=== PATIENT | female | born 1985 | race Caucasian/White ===

== ENCOUNTER 2016-09-06 19:24 | Emergency (ER) | payer OTHER ==
[2016-09-06 19:45] VITALS: BP 128/82
--- NOTE | 2016-09-06 19:54 | UC ---
Throat Pain/Nasal Abdi HPI - HPI Summary HPI Summary: complaint os sore throat that started approx 1 week ago started to lose her voice 2 days ago slight nasal congestion denies fever and chills denies cough , headache,ear pain using [place] cough drops 14 weeks [facility] M[employer]ER gave her zofran approx 13 weeks for N/V but not effective vomited 1x today- able to drink water denies diarrhea - History of Current Complaint Chief Complaint: UCRespiratory Stated Complaint: SORE THROAT, VOMITING, AND LOSS OF VOICE Time Seen by Provider: 09/06/16 19:46 Hx Obtained From: Patient Hx Last Menstrual Period: 02/17/15 - Allergies/Home Medications Allergies/Adverse Reactions: Allergies Allergy/AdvReac Type Severity Reaction Status Date / Time Penicillins Allergy throat Verified 09/06/16 19:36 swelling Home Medications: Home Medications Vitamin [Calna] 1 tab DAILY 09/06/16 [History Confirmed 09/06/16] PMH/Surg Hx/FS Hx/Imm Hx Previously Healthy: Yes - Surgical History Surgical History: Yes Surgery Procedure, Year, and Place: 2 csection; APPENDECTOMY - Family History Known Family History: Positive: None Negative: Cardiac Disease, Hypertension, Diabetes - Social History Occupation: Employed Part-time Lives: With Family Alcohol Use: None Substance Use Type: None Smoking Status (MU): Current Every Day Smoker Type: Cigarettes Amount Used/How Often: 1/2ppd Length of Time of Smoking/Using Tobacco: 17 years Have You Smoked in the Last Year: Yes Household Exposure Type: Cigarettes Cessation Counseling: Patient Advised to Stop - Immunization History Most Recent Influenza Vaccination: None Review of Systems Constitutional: Negative Skin: Negative Eyes: Negative ENT: Sore Throat Respiratory: Cough Cardiovascular: Negative Gastrointestinal: Vomiting Genitourinary: Negative Motor: Negative Neurovascular: Negative Musculoskeletal: Negative Neurological: Negative Psychological: Negative All Other Systems Reviewed And Are Negative: Yes Physical Exam Triage Information Reviewed: Yes Appearance: No Pain Distress, Well-Nourished, Obese Vital Signs: Initial Vital Signs Temp 98.3 F 09/06/16 19:38 Pulse 86 09/06/16 19:38 Resp 18 09/06/16 19:38 BP 128/82 09/06/16 19:38 Pulse Ox 99 09/06/16 19:38 Vital Signs Reviewed: Yes Eyes: Positive: Conjunctiva Clear ENT: Positive: Pharyngeal erythema, Nasal congestion, Nasal drainage Neck: Positive: No Lymphadenopathy Respiratory: Positive: Lungs clear, Normal breath sounds, No respiratory distress, No accessory muscle use Cardiovascular: Positive: RRR, No Murmur, Pulses Normal Abdomen Description: Positive: Nontender, No Organomegaly, Soft Bowel Sounds: Positive: Present Musculoskeletal: Positive: No Edema Neurological: Positive: Alert Psychological Exam: Normal Skin Exam: Normal Throat Pain/Nasal Course/Dx - Differential Dx/Diagnosis Differential Diagnosis/HQI/PQRI: Laryngitis, Pharyngitis, Tonsillitis Provider Diagnoses: laryngitis, N/V Discharge - Discharge Plan Condition: Stable Disposition: HOME Prescriptions: Acetaminophen ADULT LIQ* [Tylenol ADULT LIQ*] 650 mg PO Q6H PRN #1 bottle PRN Reason: Pain Patient Education Materials: Laryngitis (ED) Additional Instructions: You have a viral infection increase your fluids and rest take acetaminophen as needed for pain please call your OB provider tomorrow to discuss your nausea/vomiting and zofran use please review your discharge instructions -return to urgent care or the emergency room for further evaluation.
[2016-09-06] MEDS ORDERED: Acetaminophen ADULT LIQ* 650 MG/20.3 ML UDC PO ONE (20:19)
== END 2016-09-06 20:25 | disposition home or self-care (01) ==
LOC: UCEAST 19:24
DX: J04.0 Acute laryngitis (principal); R11.2 Nausea with vomiting, unspecified; Z88.0 Allergy status to penicillin; F17.210 Nicotine dependence, cigarettes, uncomplicated
CPT/HCPCS: 99212; A9270-GY; G0463

== ENCOUNTER 2016-10-28 15:06 | Emergency (ER) | payer OTHER ==
[2016-10-28 15:20] VITALS: BP 129/64
[2016-10-28] MEDS ORDERED: Acetaminophen ADULT LIQ* 650 MG/20.3 ML UDC PO ONE (15:42)
--- NOTE | 2016-10-28 16:10 | UC ---
Lower Extremity/Ankle HPI - HPI Summary HPI Summary: Twisted R ankle on stairs this morning. Had surgery in R ankle years ago for clots and vascular problems, no hx of ortho surgery. Lots of sprains in L ankle in the past. - History of Current Complaint Chief Complaint: UCLowerExtremity Stated Complaint: ANKLE INJURY,(22 WEEKS ) Time Seen by Provider: 10/28/16 15:58 Hx Obtained From: Patient Hx Last Menstrual Period: due in february 22 weeks ?: Yes Onset/Duration: Sudden Onset Severity Initially: Moderate Severity Currently: Moderate Aggravating Factor(s): Standing, Ambulation Alleviating Factor(s): Rest Able to Bear Weight: Yes - Allergies/Home Medications Allergies/Adverse Reactions: Allergies Allergy/AdvReac Type Severity Reaction Status Date / Time Penicillins Allergy throat Verified 10/28/16 15:20 swelling PMH/Surg Hx/FS Hx/Imm Hx - Additional Past Medical History Additional PMH: Hx obesity - Surgical History Surgical History: Yes Surgery Procedure, Year, and Place: 2 csection; APPENDECTOMY - Family History Known Family History: Positive: None Negative: Cardiac Disease, Hypertension, Diabetes - Social History Alcohol Use: None Substance Use Type: None Smoking Status (MU): Current Every Day Smoker Type: Cigarettes Amount Used/How Often: 1/2ppd Length of Time of Smoking/Using Tobacco: 17 years Have You Smoked in the Last Year: Yes Household Exposure Type: Cigarettes - Immunization History Most Recent Influenza Vaccination: None Review of Systems Constitutional: Negative Skin: Negative Eyes: Negative ENT: Negative Respiratory: Negative Cardiovascular: Negative Gastrointestinal: Negative Genitourinary: Negative Motor: Negative Neurovascular: Negative Musculoskeletal: Arthralgia, Decreased ROM Neurological: Negative Psychological: Negative All Other Systems Reviewed And Are Negative: Yes Physical Exam Triage Information Reviewed: Yes Appearance: Pain Distress - mild, Obese Vital Signs: Initial Vital Signs Temp 98.0 F 10/28/16 15:15 Pulse 97 10/28/16 15:15 Resp 18 10/28/16 15:15 BP 129/64 10/28/16 15:15 Pulse Ox 98 10/28/16 15:15 Vital Signs Reviewed: Yes Eye Exam: Normal Eyes: Positive: Conjunctiva Clear ENT Exam: Normal ENT: Positive: Normal ENT inspection, Hearing grossly normal, Pharynx normal, TMs normal Dental Exam: Other - edentulous Neck exam: Normal Respiratory Exam: Normal Respiratory: Positive: Chest non-tender, Lungs clear, Normal breath sounds, No respiratory distress Cardiovascular Exam: Normal Cardiovascular: Positive: RRR, No Murmur Musculoskeletal: Positive: ROM Limited @ - R ankle, Other: - diffuse pain throughout joint, no bony tenderness Neurological Exam: Normal Neurological: Positive: Alert Psychological Exam: Normal Skin Exam: Normal Lower Extremity Course/Dx - Differential Dx/Diagnosis Provider Diagnoses: R ankle sprain. elevated blood pressure due to pain Discharge - Discharge Plan Condition: Stable Disposition: HOME Patient Education Materials: Ankle Sprain (ED) Referrals: Danielle Rivera MD [Primary Care Provider] - 1 Week Additional Instructions: If you are not comfortable walking with the gel splint after a week, please see Dr. Rivera for a follow-up appointment to discuss physical therapy. However, if you see rapid and continued improvement, you can simply wear the brace for 1-3 weeks until your ankle feels better.
--- NOTE | 2016-10-28 16:39 | RAD ---
HISTORY: Right ankle injury COMPARISONS: None VIEWS: 3, Frontal, lateral, and oblique views of the right ankle FINDINGS: BONE DENSITY: Normal. BONES: There is no displaced fracture. JOINTS: There is no arthropathy. ALIGNMENT: There is no dislocation. SOFT TISSUES: There is circumferential soft tissue swelling OTHER FINDINGS: None. IMPRESSION: SOFT TISSUE SWELLING. NO ACUTE OSSEOUS INJURY. IF SYMPTOMS PERSIST, RECOMMEND REPEAT IMAGING.
== END 2016-10-28 17:00 | disposition home or self-care (01) ==
LOC: UCEAST 15:06
DX: O26.892 Other specified pregnancy related conditions, second trimester (principal); S93.401A Sprain of unspecified ligament of right ankle, initial encounter; Z3A.22 22 weeks gestation of pregnancy; X50.1XXA Overexertion from prolonged static or awkward postures, initial encounter; Y93.89 Activity, other specified; Y92.9 Unspecified place or not applicable; R03.0 Elevated blood-pressure reading, without diagnosis of hypertension; Z88.0 Allergy status to penicillin; F17.210 Nicotine dependence, cigarettes, uncomplicated
CPT/HCPCS: 99213; A9270-GY; G0463

== ENCOUNTER 2018-05-05 10:05 | Emergency (ER) | payer OTHER ==
[2018-05-05 10:24] VITALS: BP 129/86
[2018-05-05] MEDS ORDERED: Ondansetron ODT TAB* 4 MG PO ONE (11:10)
--- NOTE | 2018-05-05 11:10 | UC ---
Abdominal Pain Female HPI - HPI Summary HPI Summary: 32 yo F, hx of appendectomy, c/o acute onset severe abdominal pain associated w multiple episodes of bilious vomiting this AM. Pain feels like a twisting across her lower abdomen. No fever. Feels similar to her tubal in past. LMP Feb 25. Not on control. Hx of irregular periods that occur infrequently - History of Current Complaint Chief Complaint: UCAbdominalPain Stated Complaint: ABD PAIN VOMITING Time Seen by Provider: 05/05/18 10:33 Hx Last Menstrual Period: feb Pain Intensity: 5 Allergies/Adverse Reactions: Allergies Allergy/AdvReac Type Severity Reaction Status Date / Time Penicillins Allergy Hives Verified 05/05/18 10:25 PMH/Surg Hx/FS Hx/Imm Hx - Surgical History Surgical History: Yes Surgery Procedure, Year, and Place: 2 csection; APPENDECTOMY - Family History Known Family History: Positive: None Negative: Cardiac Disease, Hypertension, Diabetes - Social History Alcohol Use: None Substance Use Type: None Smoking Status (MU): Current Every Day Smoker Type: Cigarettes Amount Used/How Often: 1/2ppd Length of Time of Smoking/Using Tobacco: 17 years Have You Smoked in the Last Year: Yes Household Exposure Type: Cigarettes - Immunization History Most Recent Influenza Vaccination: None Review of Systems Constitutional: Negative Gastrointestinal: Abdominal Pain, Vomiting Genitourinary: Negative All Other Systems Reviewed And Are Negative: Yes Physical Exam Triage Information Reviewed: Yes Appearance: Pain Distress, Obese, Other: - tearful Vital Signs: Initial Vital Signs Temp 97.1 F 05/05/18 10:20 Pulse 63 05/05/18 10:20 Resp 17 05/05/18 10:20 BP 129/86 05/05/18 10:20 Pulse Ox 98 05/05/18 10:20 Vital Signs Reviewed: Yes Eyes: Positive: Conjunctiva Clear Abdomen Description: Positive: Soft, Guarding, Other: - TTP across upper abdomen Skin Exam: Normal Abd Pain Female Course/Dx - Course Course Of Treatment: given zofran, instructed to go to ER for eval - Differential Dx/Diagnosis Differential Diagnosis: Other - cholecystitis, gastritis, pancreatitis Provider Diagnoses: abdominal pain, vomiting Discharge - Sign-Out/Discharge Documenting (check all that apply): Patient Departure All imaging exams completed and their final reports reviewed: No Studies - Discharge Plan Condition: Stable Disposition: HOME-RECOMMEND TO ED Patient Education Materials: Acute Abdominal Pain (ED) Referrals: Danielle Rivera MD [Primary Care Provider] - - Billing Disposition and Condition Condition: STABLE Disposition: Home-Recommend to ED
== END 2018-05-05 11:30 | disposition home health service (06) ==
LOC: UCEAST 10:05
DX: R10.30 Lower abdominal pain, unspecified (principal); R10.10 Upper abdominal pain, unspecified; R11.14 Bilious vomiting; Z90.89 Acquired absence of other organs; Z88.0 Allergy status to penicillin; F17.210 Nicotine dependence, cigarettes, uncomplicated
CPT/HCPCS: 84702; 99212; A9270-GY; G0463

== ENCOUNTER → 2018-05-05 12:33 | Emergency (ER) | payer OTHER ==
[~2018-05-05 12:33] MED LIST: Ketorolac INJ* 30 MG/ML 1 ML VIAL IV PUSH ONE; NS 0.9% 1000 ML* 1,000 ML IV ONE; Ondansetron INJ* 2 MG/ML VIAL IV ONE; Ondansetron INJ* 2 MG/ML VIAL ONE
--- NOTE | 2018-05-05 13:28 | ED ---
Abdominal Pain/Female - HPI Summary HPI Summary: A 32 y/o female presents to the ED with abdominal pain since 02:00 05/05/2018. She was found hunched over in pain according to a friend. She rates her pain as 10/10. She also c/o vomiting, sore throat and diarrhea. She denies fever, chills , ALVARENGA, ear pain, blurred vision, double vision, neck pain, CP, SOB, back pain, dysuria, hematuria, blood in the stool, constipation, edema, bruising, and rashesShe has a SHx of an appendectomy and x3 C-sections. - History of Current Complaint Chief Complaint: EDAbdPain Stated Complaint: ABD PAIN Hx Obtained From: Patient, Family/Certified Drug Counselor Hx Last Menstrual Period: feb Onset/Duration: Sudden Onset Timing: Constant Severity Initially: Severe Severity Currently: Severe Pain Intensity: 10 Location: Diffuse Associated Signs and Symptoms: Positive: Vomiting, Diarrhea Allergies/Adverse Reactions: Allergies Allergy/AdvReac Type Severity Reaction Status Date / Time Penicillins Allergy Hives Verified 05/05/18 10:25 PMH/Surg Hx/FS Hx/Imm Hx Endocrine/Hematology History: Reports: Hx Diabetes Sensory History: Denies: Hx Deafness - Surgical History Surgery Procedure, Year, and Place: 2 csection; APPENDECTOMY Infectious Disease History: No Infectious Disease History: Denies: History Other Infectious Disease, Traveled Outside the [place] in Last 30 Days - Family History Known Family History: Negative: Cardiac Disease, Hypertension, Diabetes - Social History Alcohol Use: Rare Substance Use Type: Reports: Marijuana Smoking Status (MU): Light Every Day Tobacco Smoker Type: Cigarettes Amount Used/How Often: 1/2ppd Length of Time of Smoking/Using Tobacco: 17 years Have You Smoked in the Last Year: Yes Review of Systems Negative: Fever, Chills Eyes: Negative - double vision Negative: Blurred Vision ENT: Negative - throat pain Positive: Sore Throat. Negative: Ear Ache Negative: Chest Pain Negative: Shortness Of Breath Gastrointestinal: Negative - constipation, blood in stool Positive: Abdominal Pain, Vomiting, Diarrhea Negative: dysuria, hematuria Negative: Myalgia - back pain, Edema Negative: Rash, Bruising Negative: Headache All Other Systems Reviewed And Are Negative: No Physical Exam - Summary Physical Exam Summary: Appearance: Alert, conversive, nontoxic appearing Skin: Warm, dry, no mottling, no rashes, no contusions HEENT: EOMI, PERRL, dry mucous membranes Neck: No masses on the neck, supple Respiratory: Clear to auscultation, breath sounds present, no rales, no rhonchi , no wheezes Cardiovascular: RRR, pulses are symmetrical in both lower and upper extremities Abdomen: mid to lower abd discomfort Bowel Sounds: Present Musculoskeletal: No CVA tenderness, no obvious deformity, moving all extremities in a grossly normal manner Neurological: A&Ox3, CN II-XII Intact, moving all extremities symmetrically Psychiatric: Normal affect and mood Triage Information Reviewed: Yes Vital Signs On Initial Exam: Initial Vitals Temp Pulse Resp BP Pulse Ox 97.7 F 83 16 119/90 98 05/05/18 12:33 05/05/18 12:33 05/05/18 12:33 05/05/18 12:33 05/05/18 12:33 Vital Signs Reviewed: Yes Diagnostics - Vital Signs Vital Signs Temp Pulse Resp BP Pulse Ox 05/05/18 12:52 70 115/78 97 05/05/18 12:51 75 98 05/05/18 12:33 97.7 F 83 16 119/90 98 - Laboratory Result Diagrams: 05/05/18 13:32 05/05/18 13:32 Lab Statement: Any lab studies that have been ordered have been reviewed, and results considered in the medical decision making process. - Radiology CXR Radiology Interpretation Completed By: Radiologist - No active cardiopulmonary disease. The ED provider has reviewed this report. - CT abdomen/ pelvis CT Interpretation Completed By: Radiologist - #. Air-fluid level at the incompletely distended rectum corresponding with history of diarrhea. No inflammatory change of the bowel wall evident. #. Hepatosteatosis. This report has been reviewed by the ED physician. Re-Evaluation - Re-Evaluation First Eval Re-Evaluation Time: 17:55 Change: Unchanged Comment: Spoke with patient about dx being diarrhea and discharge plan. Abdominal Pain Fem Course/Dx - Course Course Of Treatment: A 32 y/o female presents to the ED with abdominal pain since 02:00 05/05/2018. She was found hunched over in pain according to a friend. Her CXR was negative and her abdomen/pelvis CT was consistent with diarrhea. She will be discharged with a diagnosis of diarrhea and is agreeable to this plan. - Diagnoses Provider Diagnoses: Diarrhea Discharge - Sign-Out/Discharge Documenting (check all that apply): Patient Departure - DC - Discharge Plan Condition: Stable Disposition: HOME Prescriptions: Ondansetron TAB* [Zofran 4 MG Tab*] 4 mg PO Q6H PRN #20 tab MDD 4 PRN Reason: Nausea Patient Education Materials: Acute Diarrhea (ED), Acute Abdominal Pain (ED) Referrals: [facility] [Provider Group] No Primary Care Phys,NOPCP [Primary Care Provider] - Additional Instructions: take zofran for nausea. return if worse or any new symptoms it is important to follow up with your primary care physician. - Billing Disposition and Condition Condition: STABLE Disposition: Home - Attestation Statements Document Initiated by Yoel: Yes Documenting Scribe: Sonu Mckeon Provider For Whom Yoel is Documenting (Include Credential): Josie Odonnell MD Scribe Attestation: Sonu Barry scribed for Josie Odonnell MD on 05/05/18 at 2137. Scribe Documentation Reviewed: Yes Provider Attestation: The documentation as recorded by the Sonu jung accurately reflects the service I personally performed and the decisions made by me, Josie Odonnell MD
[2018-05-05 13:45] LABS: ABS Basophils 0.1 10^3/ul (0-0.2); ABS Eosinophils 0.1 10^3/ul (0-0.6); ABS Lymphocytes 2.8 10^3/ul (1.0-4.8); ABS Monocytes 0.8 10^3/ul (0-0.8); ABS Neutrophils 12.8 10^3/ul (1.5-7.7); ABS Nucleated RBC 0 10^3/ul; Eosinophil % 0.7 % (0-6); Hematocrit 45 % (35-47); Hemoglobin 15.2 g/dl (12.0-16.0); Lymphocyte % 16.8 % (25-47); Mean Corpuscular HGB Conc 34 g/dl (31-36); Mean Corpuscular Hemoglobin 30 pg (27-31); Mean Corpuscular Volume 87 fL (80-97); Mean Platelet Volume 8.2 fL (7.4-10.4); Nucleated Red Blood Cells % 0; Platelet Count 299 10^3/ul (150-450); Red Cell Distribution Width 14 % (10.5-15); White Blood Count 16.6 10^3/ul (3.5-10.8)
[2018-05-05 14:14] LABS: EGFR Non-African American 121.3 (>60)
--- NOTE | 2018-05-05 15:18 | RAD ---
HISTORY: fever COMPARISONS: None VIEWS: 1: frontal AP view of the chest at 3:08 PM FINDINGS: LINES AND TUBES: None. CARDIOMEDIASTINAL SILHOUETTE: The cardiomediastinal silhouette is normal for portable technique. PLEURA: The costophrenic angles are sharp. No pleural abnormalities are noted. LUNG PARENCHYMA: The lungs are clear. ABDOMEN: The upper abdomen is clear. There is no subphrenic gas. BONES AND SOFT TISSUES: No bone or soft tissue abnormalities are noted. IMPRESSION: NO ACTIVE CARDIOPULMONARY DISEASE.
--- NOTE | 2018-05-05 17:37 | RAD ---
INDICATION: Lower abdominal pain. Abdominal distention. Vomiting. Diarrhea. Post appendectomy. COMPARISON: No relevant prior exams available on the [facility] PACS for comparison. TECHNIQUE: Multidetector CT images were obtained from the lung bases to the ischial tuberosities. No oral contrast administered. Assessment of the visceral limited without IV contrast. Multiplanar reformation. REPORT: VISUALIZED INFERIOR THORAX: Unremarkable visualized inferior thorax. LIVER / GALLBLADDER / PANCREAS / SPLEEN: Decreased density of the liver relative to the spleen consistent with fatty infiltration. No focal liver lesions or abnormality of the gallbladder, pancreas, or spleen evident. ALIMENTARY TRACT: No CT abnormality of the upper GI or small bowel. The appendix is not visualized corresponding with surgical history. The colon is largely decompressed. Air-fluid level at the rectum. No colonic wall thickening or perienteric inflammatory change evident. Negative for ascites, free air, hernias. MESENTERIC: Unremarkable. ADRENAL / GENITOURINARY: Normal adrenal glands. Unremarkable unenhanced kidneys. Unremarkable nondilated ureters. Largely decompressed urinary bladder without gross abnormality. Unremarkable uterus and adnexal regions. RETROPERITONEAL: Normal size limits bilateral inguinal lymph nodes. Negative for lymphadenopathy. VASCULAR: Normal diameter abdominal aorta and iliac arteries. Physiologic distention of the IVC. BONES: Indolent sclerosis at the iliac margins of the sacroiliac joints consistent with sacroiliitis condensans ilii without concern. No suspicious osseous lesions evident. SOFT TISSUE: Unremarkable. IMPRESSION: #. Air-fluid level at the incompletely distended rectum corresponding with history of diarrhea. No inflammatory change of the bowel wall evident. #. Hepatosteatosis.
[2018-05-05 18:35] VITALS: BP 137/77
== END | disposition home or self-care (01) ==
LOC: ED 12:33
DX: R19.7 Diarrhea, unspecified (principal); R11.10 Vomiting, unspecified; J02.9 Acute pharyngitis, unspecified; Z88.0 Allergy status to penicillin; F17.210 Nicotine dependence, cigarettes, uncomplicated
CPT/HCPCS: 36415; 71045; 74176; 80053; 83690; 83735; 84443; 84702; 85025; 96361; 96374; 96375; 99283; J1885; J2405

== ENCOUNTER 2019-03-27 14:40 | Inpatient (IN) | payer OTHER ==
--- NOTE | 2019-03-27 15:54 | PN ---
L&D Outpatient: Visit - Reproductive Information Estimated Due Date: 04/10/19 Gestational Age: 38 Weeks and 0 Days : 4 Para: 3 - Reason for Visit Visit Reason: Patient presents with complaints of abdominal cramping, vaginal mucus, and an episode of nausea/vomiting yesterday night. Denies fever, chills, GI s/sx other than nausea/vomiting, no urinary s/sx, no fever/chills, body aches and pain. - Antepartal Records Antepartal Record: Reviewed, Complicated by: - BMI 43, Tobacco use, Gestational diabetes A1, Prior times 3 Review of Systems Constitutional: Comfortable CV Complaint: No Respiratory: Shortness of Breath: No Gastrointestinal: Normal Bowel Movement, Nausea, Vomiting Genitourinary: No Dysuria, No Bleeding, No Leaking Fluid Musculoskeletal: No Complaint, No Epigastric Pain Neurological: No Headache Movement: Normal L&D Outpatient: Exam Vitals - Most Recent: Temp 97.7 P 68 RR 18 BP 126/84 RR 18 P0x 94 RA FS blood glucose 76 Lab Values - Entire Visit: Laboratory Tests 03/27/19 14:46 POC Glucose (mg/dL) 79 - Cervical Exam Cervical Exam: Closed/Thick/Posterior/-2 Cephalic - Abdominal Exam Abdomen Exam: Non-Tender, Fundal Height Consistent with Dates - Membranes Membrane Status: Intact EFM Findings - External Monitor Findings Baseline Heart Rate: 130 External Monitor Findings: Accelerations Present, Baseline Rate Changing - Spontaneous 6 minute long deceleration, responsive to resuscitation. Contractions: Irregular, Mild L&D Outpatient: Asses/Plan Assessment: at 38 weeks with multiple risks factors, BMI 43, Gestational diabetes , cigarette smoker and prior section who desires sterilization. - Discharge Diagnosis Discharge Diagnosis: Other - Non-reassuring monitoring. Plan: Admit as Inpatient
[2019-03-27] MEDS ORDERED: Lactated Ringers 1000 ML Bag* 1,000 ML IV SCH ×2 (16:00→19:00)
[2019-03-27] MEDS ORDERED: ceFOXitin 2 GM IVPREMIX* 2 GM/50 ML BAG ONE (16:14)
[2019-03-27] MEDS ORDERED: Sodium Citrate/Citric Acid* 15 ML UDC ONE (16:15)
[2019-03-27 16:19] LABS: ABS Basophils 0.1 10^3/ul (0-0.2); ABS Lymphocytes 2.9 10^3/ul (1.0-4.8); ABS Monocytes 0.8 10^3/ul (0-0.8); ABS Neutrophils 8.9 10^3/ul (1.5-7.7); Eosinophil % 0.4 %; Hematocrit 41 % (35-47); Lymphocyte % 22.9 %; Mean Corpuscular HGB Conc 34 g/dL (31-36); Mean Corpuscular Hemoglobin 30 pg (27-31); Mean Corpuscular Volume 87 fL (80-97); Platelet Count 181 10^3/uL (150-450); Red Blood Count 4.69 10^6 /uL (3.70-4.87); Red Cell Distribution Width 14 % (10-15); White Blood Count 12.8 10^3/uL (3.5-10.8)
[2019-03-27 16:21] LABS: Urine Appearance Cloudy; Urine Bilirubin Negative (Negative); Urine Blood Negative (Negative); Urine Color Yellow; Urine Glucose Negative (Negative); Urine Ketones Negative (Negative); Urine Nitrite Negative (Negative); Urine Protein Negative (Negative); Urine Specific Gravity 1.017 (1.010-1.030); Urine Urobilinogen Negative (Negative)
[2019-03-27] MEDS ORDERED: Clindamycin 900 MG IVPREMIX(* 900 MG/50 ML SDV IV ONE ×2 (16:21→16:25)
[2019-03-27] MEDS ORDERED: Morphine PF AMP (0.5MG/ML)* 5 MG/10 ML AMP ONE (16:27)
[2019-03-27] MEDS ORDERED: GENTAMICIN ADULT IVPB ONE (16:30)
[2019-03-27] MEDS ORDERED: NS 0.9% IVPB ONE (16:30)
[2019-03-27 16:35] LABS: BUN/Creatinine Ratio 15.4 (8-20); Calcium 8.2 mg/dL (8.6-10.3); EGFR African American 165.4 (>60); EGFR Non-African American 136.7 (>60); Potassium 4.1 mmol/L (3.5-5.0); Total Bilirubin 0.3 mg/dL (0.2-1.0)
[2019-03-27] MEDS ORDERED: Ondansetron INJ* 2 MG/ML VIAL ONE (16:57)
[2019-03-27] MEDS ORDERED: OXYTOCIN* 10 UNITS/ML 1 ML VIAL ONE (16:57)
[2019-03-27] MEDS ORDERED: Phenylephrine 40 MCG/ML SYRINGE ONE (16:57)
[2019-03-27] MEDS ORDERED: Ketorolac INJ* 30 MG/ML 1 ML VIAL ONE (16:57)
[2019-03-27] MEDS ORDERED: EPHEDrine (Pressors)* 50 MG/ML VIAL ONE (16:57)
[2019-03-27] MEDS ORDERED: HYDROmorphone INJ1* 1 MG/ML SYRINGE IV PRN (17:31)
[2019-03-27] MEDS ORDERED: Naloxone* 0.4 MG/ML 1 ML VIAL IV PRN ×2 (17:31→17:33)
[2019-03-27] MEDS ORDERED: DiMENhydriNATE IV* 50 MG/ML VIAL IV PUSH PRN (17:31)
[2019-03-27] MEDS ORDERED: Acetaminophen IV 1GM/100ML * 1,000 MG/100 ML VIAL IVPB ONE (17:31)
[2019-03-27] MEDS ORDERED: Nalbuphine* 10 MG/ML 1 ML VIAL IV PRN (17:33)
[2019-03-27] MEDS ORDERED: Ondansetron INJ* 2 MG/ML VIAL IV PRN (17:33)
--- NOTE | 2019-03-27 17:58 | HP ---
General Information - Reason for Visit Patient arrived to with contractions and recurrent episodes of prolonged decelerations. - General Information Maternal Age: 33 Grav: 4 Para: 3 SAB: 0 IEA: 0 Estimated Due Date: 04/10/19 Determined By: Early Ultrasound Gestational Age in Weeks/Days: 38 Maternal Blood Type and Rh: O Positive - Results this Serology/RPR Result: Non-Reactive Rubella Result: Immune HBsAg Result: Negative HIV Result: Negative GBS Culture Result: Negative Past Medical History Delivery History: Hx C/Section, See Records Pertinent Past Medical History: See Records Past Medical History Comment: Morbid Obesity 1 Pk/day cigarette smoker Pertinent Past Surgical History: See Records Pertinent Family History: See Records - Antepartal Records Antepartal Records: Reviewed, Complicated by: - BMI 43, cigarette smoker, gestational diabetes, prior X 3 Review of Systems Constitutional: Uncomfortable CV Complaint: No Respiratory: Shortness of Breath: No Gastrointestinal: Normal Bowel Movement, Nausea Genitourinary: No Dysuria, No Bleeding, No Leaking Fluid Musculoskeletal: Contractions Neurological: No Headache, No Visual Changes Movement: Normal Exam Allergies/Adverse Reactions: Allergies Penicillins Allergy (Verified 05/05/18 10:25) Hives hives See outpatient note vitals Lab Values - Entire Visit: Laboratory Tests 03/27/19 03/27/19 03/27/19 14:46 16:00 16:00 WBC 12.8 H RBC 4.69 Hgb 14.0 Hct 41 MCV 87 MCH 30 MCHC 34 RDW 14 Plt Count 181 MPV 10.0 Neut % (Auto) 69.5 Lymph % (Auto) 22.9 [place] % (Auto) 6.6 Eos % (Auto) 0.4 Baso % (Auto) 0.6 Absolute Neuts (auto) 8.9 H Absolute Lymphs (auto) 2.9 Absolute Monos (auto) 0.8 Absolute Eos (auto) 0.0 Absolute Basos (auto) 0.1 Absolute Nucleated RBC 0.0 Nucleated RBC % 0.0 Sodium 136 Potassium 4.1 Chloride 109 Carbon Dioxide 23 Anion Gap 4 BUN 8 Creatinine 0.52 Est GFR ( Amer) 165.4 Est GFR (Non-Af Amer) 136.7 BUN/Creatinine Ratio 15.4 Glucose 89 POC Glucose (mg/dL) 79 Calcium 8.2 L Total Bilirubin 0.30 AST 9 L ALT 6 L Alkaline Phosphatase 118 H Total Protein 6.0 L Albumin 3.0 L Globulin 3.0 Albumin/Globulin Ratio 1.0 Urine Color Urine Appearance Urine pH Ur Specific [place] Urine Protein Urine Ketones Urine Blood Urine Nitrate Urine Bilirubin Urine Urobilinogen Ur Leukocyte Esterase Urine Glucose Blood Type Antibody Screen 03/27/19 03/27/19 16:00 16:00 WBC RBC Hgb Hct MCV MCH MCHC RDW Plt Count MPV Neut % (Auto) Lymph % (Auto) [place] % (Auto) Eos % (Auto) Baso % (Auto) Absolute Neuts (auto) Absolute Lymphs (auto) Absolute Monos (auto) Absolute Eos (auto) Absolute Basos (auto) Absolute Nucleated RBC Nucleated RBC % Sodium Potassium Chloride Carbon Dioxide Anion Gap BUN Creatinine Est GFR ( Amer) Est GFR (Non-Af Amer) BUN/Creatinine Ratio Glucose POC Glucose (mg/dL) Calcium Total Bilirubin AST ALT Alkaline Phosphatase Total Protein Albumin Globulin Albumin/Globulin Ratio Urine Color Yellow Urine Appearance Cloudy Urine pH 7.0 Ur Specific [place] 1.017 Urine Protein Negative Urine Ketones Negative Urine Blood Negative Urine Nitrate Negative Urine Bilirubin Negative Urine Urobilinogen Negative Ur Leukocyte Esterase Negative Urine Glucose Negative Blood Type O Positive Antibody Screen Negative - Measurements Height: 5 ft 4 in Weight: 237 lb Body Mass Index (BMI): 40.6 Pre- Weight: 250 lb - Exam Breast: Breast Exam Deferred CVA: No CVA Tenderness Extremities: No Edema Heart: Normal Rhythm/Heart Sounds HEENT: No Significant Findings Lungs: Clear Bilaterally Rectal: Rectal Exam Deferred Reflexes: DTR 2+ Thyroid: No Thyromegaly - Abdominal Exam Abdomen Exam: Non-Tender - Ultrasound/Biophysical Profile Ultrasound Status: Not Done Targeted Exam Findings See L&D Outpatient Visit Provider Note for Findings: N/A Cervical Exam: Closed Effacement: Thick Station: -2 Presenting Part: Vertex Membrane Status: Intact EFM Findings - External Monitor Findings Baseline Heart Rate: 130 External Monitor Findings: Variable or Late Deceleration Pattern Present Contractions: Irregular Assessment/Plan - Assessment Non reassuring monitoring, prolonged repetitive decelerations. - Obstetrical Risk Factors Obstetrical Risk Factors: Obesity, Gestational Diabetes, Previous C/Section in Labor, Tobacco Use - Plan Plan: Expedite C/S Delivery - Date/Time of Admission Date of Admission: 03/27/19 Time of Admission: 18:03
[2019-03-27] MEDS ORDERED: oxyCODONE/Acetamin 5/325 MG* TAB PO PRN (18:03)
[2019-03-27] MEDS ORDERED: Dibucaine 1% 28.35 GM TUBE PR PRN (18:03)
[2019-03-27] MEDS ORDERED: Glycerin ADULT SUPP PR PRN (18:03)
[2019-03-27] MEDS ORDERED: Witch Hazel PAD* JAR TOPICAL PRN (18:03)
[2019-03-27] MEDS ORDERED: DiMENhydriNATE IV* 50 MG/ML VIAL ONE (18:27)
[2019-03-27 20:52] LABS: Urine Benzodiazepine Screen None Detected (None Detect); Urine Opiates Screen None Detected (None Detect)
[2019-03-28] MEDS: Ketorolac INJ* 30 MG/ML 1 ML VIAL IV SCH ×3 (00:21→08:39)
[2019-03-28] MEDS: Acetaminophen TAB* 325 MG PO PRN ×3 (03:38→18:28)
[2019-03-28 06:45] LABS: ABS Eosinophils 0.1 10^3/ul (0-0.6); ABS Lymphocytes 2.1 10^3/ul (1.0-4.8); ABS Monocytes 0.9 10^3/ul (0-0.8); ABS Neutrophils 13.6 10^3/ul (1.5-7.7); Eosinophil % 0.5 %; Hematocrit 37 % (35-47); Hemoglobin 12.5 g/dL (12.0-16.0); Lymphocyte % 12.8 %; Mean Corpuscular HGB Conc 34 g/dL (31-36); Mean Corpuscular Hemoglobin 30 pg (27-31); Mean Corpuscular Volume 89 fL (80-97); Mean Platelet Volume 9.9 fL (7.4-10.4); Platelet Count 158 10^3/uL (150-450); Red Blood Count 4.11 10^6 /uL (3.70-4.87); Red Cell Distribution Width 14 % (10-15); White Blood Count 16.6 10^3/uL (3.5-10.8)
[2019-03-28] MEDS: Simethicone TAB* 80 MG TAB.CHEW PO SCH ×5 (07:35→21:38)
[2019-03-28] MEDS: Docusate CAP* 100 MG PO SCH ×4 (07:36→21:38)
[2019-03-28] MEDS ORDERED: Zolpidem TAB* 5 MG PO PRN (08:33)
[2019-03-28] MEDS ORDERED: oxyCODONE/Acetamin 5/325 MG* TAB PO PRN (08:33)
[2019-03-28] MEDS: Ferrous Gluconate TAB* 324 MG TAB PO SCH (11:50)
[2019-03-28] MEDS: Ibuprofen TAB* 600 MG PO PRN ×2 (15:05→21:38)
[2019-03-28] MEDS: oxyCODONE/Acetamin 5/325 MG* TAB PO PRN (21:39)
[2019-03-29] MEDS: oxyCODONE/Acetamin 5/325 MG* TAB PO PRN ×3 (02:47→16:00)
[2019-03-29] MEDS: Ibuprofen TAB* 600 MG PO PRN (06:30)
[2019-03-29 08:29] VITALS: BP 116/66
[2019-03-29] MEDS: Docusate CAP* 100 MG PO SCH ×2 (08:40→14:34)
--- NOTE | 2019-03-29 13:04 | OP ---
CC: Genet Houser MD.* DATE OF OPERATION: 03/27/19 - ROOM #103 DATE OF : 87 SURGEON: Manav Harris MD ASSISTANT PROGRAM MANAGER: Genet Houser MD. ANESTHESIA: Spinal. PRE-OP DIAGNOSES: 1. at 38 weeks, in labor with nonreassuring monitoring, category 3 tracing, prior section x3 and obesity and gestational diabetes. 2. Desired permanent sterilization. POST-OP DIAGNOSES: 1. at 38 weeks, in labor with nonreassuring monitoring, category 3 tracing, prior section x3 and obesity and gestational diabetes. 2. Desired permanent sterilization. OPERATIVE PROCEDURE: Repeat low transverse section and bilateral tubal ligation. ESTIMATED BLOOD LOSS: 600 cc. SPECIMENS SENT TO PATHOLOGY: Cord blood and bilateral tubal fimbriae. FLUIDS: She received 2200 cc of IV crystalloid fluid. URINE OUTPUT: Clear. FINDINGS: Delivery of a male infant weighing 6 pounds and 0 ounce with Apgars of 8 and 9 over meconium stained fluid. The placenta was grossly intact with 3 vessel cord noted. The uterus, adnexa, bowel and bladder were all within normal limits and there were no complications. DESCRIPTION OF PROCEDURE: The patient was taken to the operating room where she was identified. She was placed on the operating table where a spinal anesthetic was obtained without difficulty. She was then placed in the supine position with a leftward tilt, prepped and draped in a normal sterile fashion. A Pfannenstiel skin incision was made with a knife and carried through to underlying layer of fascia. The fascia was nicked in the midline and extended laterally with curved Pedersen scissors. The fascia was grasped superiorly and inferiorly with Joy clamps and dissected off sharply from the rectus muscle. The rectus muscle was in the midline bluntly. The peritoneum was identified, grasped with pick-ups and entered sharply with Metzenbaum scissors and extended superiorly and inferiorly sharply. A ring retraction was used on the patient's abdomen. A bladder flap was created using Metzenbaum scissors. A low transverse incision was made with a knife, extended laterally with bandage scissors. The amniotic sac was ruptured and the amniotic fluid was noted to be meconium stained. The infant's head was then grasped and delivered with vacuum assistance. The rest of the 's body was then delivered. The cord was clamped and cut and the was handed off to awaiting [employer] assistant manager. Cord bloods were obtained. The placenta was removed manually. At this point, the retractor was removed. The uterus was then exteriorized, cleared of all clot and debris using moist laparotomy sponges. The uterine incision was then closed using 0 Polysorb suture in a running locked fashion with a second imbricating layer of 0 Polysorb suture with good hemostasis noted. The uterus was then returned to the patient's abdomen. The gutters were then cleared of all clot and debris using irrigation and moist laps. All the irrigation fluid was suctioned as well as the moist laps were removed from the patient's abdomen. After irrigating, we proceeded to do a bilateral tubal ligation with bilateral fimbriectomy in the usual fashion. Portions of the right and the left fimbriae were sent to pathology. At this point, we proceeded to close the patient's peritoneum with 3-0 Polysorb suture in a running fashion. The fascia was closed using 0 Polysorb suture in a running fashion. The Onel's layer was closed with interrupted 3-0 Polysorb suture and the skin was closed with blair. The patient tolerated the procedure well. Sponge, lap, and needle counts were correct x2. She was then transferred to the recovery room area in stable condition. [id number]/[facility] #: [id number] GIULIA
[2019-03-29] MEDS: Ferrous Gluconate TAB* 324 MG TAB PO SCH (14:32)
[2019-03-29] MEDS: Simethicone TAB* 80 MG TAB.CHEW PO SCH ×2 (14:34)
[2019-03-29] MEDS ORDERED: Nystatin TOP POWDER* 15 GM BTL TOPICAL SCH (15:00)
== END 2019-03-29 16:50 | disposition home or self-care (01) | DRG 540 ==
LOC: MCHOBOUT 14:40 → MCHOB 16:11
PROVIDERS: ADMIT Obstetrics & Gynecology; ATTEND Obstetrics & Gynecology
PROC: 4A1HXCZ Monitoring of Products of Conception, Cardiac Rate, External Approach (ICD-10-PCS; 2019-03-27)
PROC: 0UB70ZZ Excision of Bilateral Fallopian Tubes, Open Approach (ICD-10-PCS; 2019-03-27)
PROC: 10D00Z1 Extraction of Products of Conception, Low, Open Approach (ICD-10-PCS; principal; 2019-03-27 16:26)
DX: O34.211 Maternal care for low transverse scar from previous cesarean delivery (principal); O99.824 Streptococcus B carrier state complicating childbirth; O76 Abnormality in fetal heart rate and rhythm complicating labor and delivery; O99.214 Obesity complicating childbirth; E66.01 Morbid (severe) obesity due to excess calories; O24.429 Gestational diabetes mellitus in childbirth, unspecified control; O99.334 Smoking (tobacco) complicating childbirth; F17.210 Nicotine dependence, cigarettes, uncomplicated; O77.0 Labor and delivery complicated by meconium in amniotic fluid; O69.1XX0 Labor and delivery complicated by cord around neck, with compression, not applicable or unspecified; Z37.0 Single live birth; Z3A.38 38 weeks gestation of pregnancy; Z88.0 Allergy status to penicillin; Z30.2 Encounter for sterilization
CPT/HCPCS: 36415; 80053; 80307; 81003; 85025; 86850; 86900; 86901; 88302; A9270-GY; J0694; J1240; J1580; J1885; J2405; J2590